=== PATIENT | female | born 1955 | race Caucasian/White ===

== ENCOUNTER 2020-04-15 06:59 | Day surgery (SDC) | payer MEDICARE ==
[~2020-04-15] VITALS: Ht 167.6 cm; Wt 106.1 kg
[2020-04-15] MEDS ORDERED: BUPIVACAINE/PF 0.5% ONE (07:05)
[2020-04-15] MEDS ORDERED: LACTATED RINGERS 1,000 ML IV SCH (07:51)
[2020-04-15] MEDS ORDERED: ALEN70TA6 PO (07:55)
[2020-04-15] MEDS ORDERED: LISI-167 PO (07:55)
[2020-04-15] MEDS ORDERED: AMOX1TAB64 PO (07:55)
[2020-04-15] MEDS ORDERED: HYDR-3240 PO (07:55)
[2020-04-15] MEDS ORDERED: CHLORHEXIDINE 15 ML UDC MM ONE (08:00)
[2020-04-15] MEDS ORDERED: CHLORHEXIDINE 15 ML UDC ONE (08:01)
[2020-04-15 08:21] VITALS: BP 114/81
[2020-04-15] MEDS ORDERED: METHOCARBAMOL 1,000 MG in DEXTROSE 5% 100 ML IV PRN (08:30)
[2020-04-15] MEDS ORDERED: ONDANSETRON 2MG/ML, 2ML IVPush PRN (08:30)
[2020-04-15] MEDS ORDERED: LABETALOL 5MG/ML, 20ML IV PRN (08:30)
[2020-04-15] MEDS ORDERED: LORazepam 2 MG/ML, 1ML IVPush PRN (08:30)
[2020-04-15] MEDS ORDERED: HYDROmorphone 1 MG/ML, 1ML INJ IVPush PRN (08:30)
[2020-04-15] MEDS ORDERED: EPHEDRINE 50 MG/ML, 1ML IM PRN (08:30)
[2020-04-15] MEDS ORDERED: OXYcodone 5 MG/5 ML ORAL.SOL UDC PO PRN (08:30)
[2020-04-15] MEDS ORDERED: ACETAMINOPHEN 325 MG TABLET PO PRN (08:30)
[2020-04-15] MEDS ORDERED: MEPERIDINE/PF 25MG/0.5ML IVPush PRN (08:30)
[2020-04-15] MEDS ORDERED: ALBUTEROL/IPRATROPIUM 2.5MG/0.5MG, 3 ML NPPB PRN (08:30)
[2020-04-15] MEDS ORDERED: hydrALAzine 20 MG/ML, 1ML IV PRN (08:30)
[2020-04-15] MEDS ORDERED: DIPHENHYDRAMINE 50 MG/ML, 1ML IVPush PRN (08:30)
[2020-04-15] MEDS ORDERED: KETOROLAC 30 MG/1 ML IV PRN (08:30)
[2020-04-15] MEDS ORDERED: METOCLOPRAMIDE 5 MG/ML, 2ML IVPush PRN (08:30)
[2020-04-15] MEDS ORDERED: DIAZEPAM 5 MG/ML, 2ML IVPush PRN (08:30)
[2020-04-15] MEDS ORDERED: MIDAZOLAM 1 MG/ML, 2ML IV PRN (08:30)
[2020-04-15] MEDS ORDERED: HYDROcodone/APAP 7.5-325MG/15ML UDC PO PRN (08:30)
[2020-04-15] MEDS ORDERED: HALOPERIDOL 5 MG/ML IV PRN (08:30)
[2020-04-15] MEDS ORDERED: EPHEDRINE 50 MG/ML, 1ML IVPush PRN (08:30)
[2020-04-15] MEDS ORDERED: ROCURONIUM 10MG/ML,5ML ONE (08:36)
[2020-04-15] MEDS ORDERED: DEXAMETHASONE 4 MG/ML, 1ML ONE (08:36)
[2020-04-15] MEDS ORDERED: LIDOCAINE-MPF 2% ,5ML ONE (08:36)
[2020-04-15] MEDS ORDERED: PROPOFOL 10 MG/ML, 20ML ONE (08:36)
[2020-04-15] MEDS ORDERED: GLYCOPYRROLATE 0.2MG/1ML, 5ML ONE (08:36)
[2020-04-15] MEDS ORDERED: MIDAZOLAM 1 MG/ML, 2ML ONE ×2 (08:37→10:06)
[2020-04-15] MEDS ORDERED: FENTANYL PF 250 MCG/5ML ONE (08:37)
[2020-04-15 08:40] LABS: ALBUMIN 3.7 g/dL (3.4-5.0); ANION GAP 7 mmol/L (5-15); CALCIUM 9.3 mg/dL (8.5-10.1); CHLORIDE 107 mmol/L (98-107)
[2020-04-15 08:44] LABS: ALANINE AMINOTRANSFERASE 28 U/L (12-78); ALKALINE PHOSPHATASE 62 U/L (45-117); BILIRUBIN,TOTAL 0.5 mg/dL (0.2-1.0); CREATININE 0.86 mg/dL (0.55-1.02); TOTAL PROTEIN 7.6 g/dL (6.4-8.2)
[2020-04-15] MEDS ORDERED: CEFAZOLIN 1,000 MG ONE (09:12)
[2020-04-15] MEDS ORDERED: ONDANSETRON 2MG/ML, 2ML ONE (09:35)
[2020-04-15] MEDS ORDERED: AMPICILLIN/SULBACTAM 3 GM in SODIUM CHLORIDE 0.9% 100 ML IV ONE (10:00)
[2020-04-15] MEDS ORDERED: FENTANYL PF 100 MCG/2ML ONE (10:06)
[2020-04-15] MEDS: FENTANYL PF 100 MCG/2ML IV PRN ×2 (10:15→10:20)
[2020-04-15] MEDS ORDERED: OXYcodone 5 MG/5 ML ORAL.SOL UDC ONE (10:36)
[2020-04-15] MEDS ORDERED: ACETAMINOPHEN 650 MG/20.3 ML UDC ONE (10:36)
[2020-04-15] MEDS ORDERED: MEPERIDINE/PF 25MG/ML,1ML ONE (10:50)
== END 2020-04-15 13:10 | disposition home or self-care (01) ==
LOC: OUT 06:59
PROVIDERS: ATTEND Orthopaedic Surgery
DX: S52.571A Other intraarticular fracture of lower end of right radius, initial encounter for closed fracture (principal); Z11.59 Encounter for screening for other viral diseases; S61.051A Open bite of right thumb without damage to nail, initial encounter; I10 Essential (primary) hypertension; Z88.5 Allergy status to narcotic agent; Z88.8 Allergy status to other drugs, medicaments and biological substances; E66.9 Obesity, unspecified; W19.XXXA Unspecified fall, initial encounter; Y93.89 Activity, other specified; Y92.89 Other specified places as the place of occurrence of the external cause; Y99.8 Other external cause status; Z79.899 Other long term (current) drug therapy; Z68.37 Body mass index [BMI] 37.0-37.9, adult; Z72.89 Other problems related to lifestyle; Z87.891 Personal history of nicotine dependence
CPT/HCPCS: 11042; 25608; 36415; 73110; 80053; 87635; 93005; C1713; C1776; J0295; J0690; J1100; J2175; J2250; J2405; J2704; J3010; J7120; 76000